=== PATIENT | male | born 1990 | race Caucasian/White ===

== ENCOUNTER 2019-10-30 17:17 | Emergency (ER) | payer BC ==
[2019-10-30] MEDS ORDERED: Glucagon* 1 MG VIAL IV ONE (18:20)
--- NOTE | 2019-10-30 18:23 | ED ---
Throat Pain/Nasal Congestion - HPI Summary HPI Summary: The patient is a 28-year-old male presenting to [facility] [place] with a chief complaint of pharyngeal foreign body sensation onset around 1500. He reports that he was eating chicken at the time, and he now feels like there is something stuck in his throat. He is drooling and is experiencing dysphagia as he is unable to swallow any liquids or solids. Patient denies wheezing. Symptoms currently rated 0/10 in severity. No history of esophageal strictures. Past medical history significant for asthma, appendectomy. Former smoker, occasional alcohol use, no substance use. Medications reviewed. Allergies noted. - History of Current Complaint Chief Complaint: EDForeignBodyEsophag Time Seen by Provider: 10/30/19 18:15 Hx Obtained From: Patient Onset/Duration: Sudden Onset, Lasting Hours, Still Present Severity: Moderate Associated Signs And Symptoms: Positive: Dysphagia, FB Sensation, Drooling. Negative: Wheezing Cough: None Related History: Smoking - former, Other (Noted In Comments) - asthma - Allergies/Home Medications Allergies/Adverse Reactions: Allergies Allergy/AdvReac Type Severity Reaction Status Date / Time No Known Allergies Allergy Verified 10/30/19 17:21 PMH/Surg Hx/FS Hx/Imm Hx Endocrine/Hematology History: Denies: Hx Diabetes, Hx Thyroid Disease Cardiovascular History: Denies: Hx Hypercholesterolemia, Hx Hypertension Respiratory History: Reports: Hx Asthma Denies: Hx Chronic Obstructive Pulmonary Disease (COPD) GI History: Denies: Hx Ulcer Sensory History: Reports: Hx Contacts or Glasses Opthamlomology History: Reports: Hx Contacts or Glasses - Surgical History Surgical History: Yes Surgery Procedure, Year, and Place: appendix Infectious Disease History: No Infectious Disease History: Denies: Hx Hepatitis, Hx Human Immunodeficiency Virus (HIV), Traveled Outside the [place] in Last 30 Days - Family History Known Family History: Negative: Cardiac Disease, Hypertension, Diabetes - Social History Alcohol Use: Occasionally Hx Substance Use: No Substance Use Type: Reports: None Hx Tobacco Use: Yes Smoking Status (MU): Former Smoker Review of Systems Positive: Other - dysphagia with liquids and solids, drooling, FB sensation Negative: Other - wheezing All Other Systems Reviewed And Are Negative: Yes Physical Exam - Summary Physical Exam Summary: VITAL SIGNS: Reviewed. GENERAL: Patient is a well-developed and nourished male who is lying comfortable in the stretcher. Patient is not in any acute respiratory distress. HEAD AND FACE: No signs of trauma. No ecchymosis, hematomas or skull depressions. No sinus tenderness. EYES: PERRLA, EOMI x 2, No injected conjunctiva, no nystagmus. EARS: Hearing grossly intact. Ear canals and tympanic membranes are within normal limits. MOUTH: Drooling. No airway compromise. Oropharynx otherwise within normal limits. NECK: Supple, trachea is midline, no adenopathy, no JVD, no carotid bruit, no c- spine tenderness, neck with full ROM. CHEST: Symmetric, no tenderness at palpation. LUNGS: Clear to auscultation bilaterally. No wheezing or crackles. CVS: Regular rate and rhythm, S1 and S2 present, no murmurs or gallops appreciated. ABDOMEN: Soft, non-tender. No signs of distention. No rebound, no guarding, and no masses palpated. Bowel sounds are normal. EXTREMITIES: FROM in all major joints, no edema, no cyanosis or clubbing. NEURO: Alert and oriented x 3. No acute neurological deficits. Speech is normal and follows commands. SKIN: Dry and warm. Triage Information Reviewed: Yes Vital Signs On Initial Exam: Initial Vitals Temp Pulse Resp BP Pulse Ox 98.1 F 84 19 144/86 100 10/30/19 17:18 10/30/19 17:18 10/30/19 17:18 10/30/19 17:18 10/30/19 17:18 Vital Signs Reviewed: Yes Procedures - Sedation Patient Received Moderate/Deep Sedation with Procedure: Yes Are You The Provider Who Administered The Sedation: [place] of Provider Whom Sedated Patient: [facility] - Vital Signs Vital Signs Temp Pulse Resp BP Pulse Ox 10/30/19 17:26 81 96 10/30/19 17:25 89 137/81 98 10/30/19 17:18 98.1 F 84 19 144/86 100 - Laboratory Lab Statement: Any lab studies that have been ordered have been reviewed, and results considered in the medical decision making process. Re-Evaluation - Re-Evaluation First Eval Re-Evaluation Time: 21:00 Change: Improved Comment: Dr. Rice dislodged the foreign body from the patient's esophagus. Patient is safe for discharge once he becomes more alert and oriented following sedation. EENT Course/Dx - Course Assessment/Plan: The patient is a 28-year-old male presenting to [facility] [place] department with a chief complaint of pharyngeal foreign body sensation onset around 1500. He reports that he was eating chicken at the time, and he now feels like there is something stuck in his throat. He is drooling and is experiencing dysphagia as he is unable to swallow any liquids or solids. Patient denies wheezing. Symptoms currently rated 0/10 in severity. No history of esophageal strictures. Past medical history significant for asthma, appendectomy. Former smoker, occasional alcohol use, no substance use. Medications reviewed. Allergies noted. In the ED course the patient was placed on a jelly maker, IV access was obtained, IV fluids started. Patient was given IV Glucagon. There was no success of the patient passing the foreign body in the esophagus. I discussed my physical exam and findings with Dr. Rice from GI, and he will come and consult for this patient. Dr. Rice from was able to remove the food bolus. The patient is much more comfortable. The patient is resting comfortable without any distress. The patient wound was observed for a couple hours. Now the patient is alert and oriented 3. The patient was tolerating fluids without any nausea or vomiting. The patient will be discharged home with follow-up with primary care physician as well as Dr. Magdaleno from . Plan of care was discussed with the patient, and he understands and agrees. All questions were answered at patient satisfaction. There were no further complaints or concerns. Lung exam before discharge: CTA B/ L. Good air exchange. No wheezing or crackles heard. CVS: S1 and S2 present. No murmurs appreciated. Patient is alert and oriented x 3. Patient is hemodynamically stable. Patient will be discharged home with follow up PCP in the next 2-3 days. - Diagnoses Provider Diagnoses: Esophageal foreign body - Provider Notifications Discussed Care Of Patient With: Henry Rice - Time Discussed With Above Provider: 18:20 Instructed by Provider To: MD Will See In ED - I discussed the patient's case with Dr. Rice, and he will come see the patient in the emergency department. Dr. Rice sedated the patient using 150mcg Fentanyl and 20mg Versed, and he was able to dislodge the chicken stuck in the patients throat via endoscopy. The patients airway is open, and he is able to speak and swallow without difficulty. He will follow up with the patient in two weeks in his office for another scope. Discharge ED - Sign-Out/Discharge Documenting (check all that apply): Patient Departure - Patient will be discharged home. - Discharge Plan Condition: Stable Disposition: HOME Patient Education Materials: Moderate Sedation (ED), Foreign Body Ingestion (ED ) Referrals: Henry Rice MD [Medical Doctor] - Kitty Carey MD [Primary Care Provider] - 3 Days Additional Instructions: Follow up with Dr. Rice in two weeks. His office will call you to set up an appointment. Follow up with your primary care provider in 2-3 days. Return to the emergency department for any new or worsening symptoms. - Billing Disposition and Condition Condition: STABLE Disposition: Home - Attestation Statements Document Initiated by Cliff: Yes Documenting Scribe: Yanci Paul Provider For Whom Cliff is Documenting (Include Credential): Dr. Dalton Khan MD Scribe Attestation: Yanci Moy scribed for Dr. Dalton Khan MD on 10/30/19 at 2148. Scribe Documentation Reviewed: Yes Provider Attestation: The documentation as recorded by the Yanci mas accurately reflects the service I personally performed and the decisions made by me, Dr. Dalton Khan MD Status of [place] Document: Viewed
[2019-10-30] MEDS ORDERED: NS 0.9% 1000 ML** 1,000 ML IV SCH (19:30)
[2019-10-30] MEDS ORDERED: Midazolam* 1 MG/ML 10 ML VIAL (10 MG) ONE (19:39)
[2019-10-30] MEDS ORDERED: fentaNYL* 50 MCG/ML 2 ML VIAL (100 MCG VIAL) ONE (19:39)
--- NOTE | 2019-10-30 20:51 | CONS ---
CC: Dr. Carey * CONSULTATION REPORT: DATE OF CONSULT: 10/30/19 - EMERGENCY DEPT REQUESTING PHYSICIAN: Dr. Khan in the emergency room. PRIMARY CARE PHYSICIAN: Dr. Carey. INDICATION FOR CONSULTATION: Esophageal foreign body, dysphagia. NARRATIVE: The patient is located in room 12 of the emergency room. NARRATIVE: Mr. Pacheco is a very pleasant 28-year-old gentleman who has a history of asthma and seasonal allergies who was eating chicken stir smith around 3 p.m. today. He states that he was eating a large piece of chicken and it felt like it became stuck. This has happened to him before. He can remember 2 other episodes, but each time, he was able to clear the foreign body on his own. He has been unable to handle his own secretions. He has tried to drink water. The water regurgitates up on him. He is drooling his secretions and spitting into a bag. He denies any chest pain, no difficulties breathing. No history of acid reflux. No family history of esophageal issues. PAST MEDICAL HISTORY: Only significant for asthma; however, he does not use any inhalers and seasonal allergies. CURRENT MEDICATIONS: Include Claritin as needed. He had been on asthma inhalers, but has not needed to use them for many years. He denies any NSAIDs. ALLERGIES: None. PAST SURGICAL HISTORY: None. FAMILY HISTORY: No esophageal issues. No GI malignancies in the family. REVIEW OF SYSTEMS: A 12 systems were reviewed with the patient. Other than that mentioned in the HPI were unremarkable. PHYSICAL EXAMINATION: Temperature is 98.1, blood pressure is 144/86, pulse is 84, respiratory rate of 19, O2 sat is 100% on room air. General: Well appearing male in no apparent distress. Alert, oriented, pleasant, fluent. HEENT: Mucous membranes are moist without lesions, ulcers, or exudate. Neck is supple. Trachea is midline. Head is normocephalic, atraumatic. The patient wears glasses. Heart: Regular rate and rhythm. No murmurs, rubs or gallops. Lungs: Clear to auscultation bilaterally. No wheezes, rales, or rhonchi. Abdomen: Positive bowel sounds, soft, nontender, nondistended, no hepatosplenomegaly, masses, rebound, or guarding. Skin is warm and dry. No rashes or tattoos. LABORATORY DATA: Of note, none have been drawn. ASSESSMENT AND PLAN: This is a pleasant 28-year-old gentleman with a history of intermittent dysphagia who presents today with esophageal foreign body. Currently, he is unable to handle his own secretions. He does need an urgent EGD. I had a long discussion with the patient regarding the EGD procedure, risks, benefits and alternatives and he agrees to proceed. We will plan on performing the EGD in the emergency room. [id number]/[facility] #: [id number] [facility] CENTERAngela
[2019-10-30 22:18] VITALS: BP 137/88
--- NOTE | 2019-10-31 02:26 | PRO ---
DATE OF PROCEDURE: 10/30/19 - EMERGENCY DEPT PROCEDURE PERFORMED: EGD with foreign body removal. INDICATION: Esophageal foreign body. DESCRIPTION OF PROCEDURE: After the EGD procedure including risks, benefits, alternatives, not limited to perforation, surgery, and/or were explained to the patient, written consent was then obtained, IV medication was given, and a bite block was placed between the teeth. IV fentanyl 150 mcg, Versed 20 mg IV were used for sedation. An Olympus gastroscope was then inserted into the patient's mouth and advanced down the esophagus. His uvula was somewhat erythematous and was very friable and oozed some blood even before I did the procedure, likely this is secondary to his retching. The upper esophageal sphincter was easily traversed, and immediately upon entering the esophagus, there was what appeared to be a foreign body consistent of chicken. I then used the [employer] to remove 3 large chunks of it. Eventually, the chicken fell apart and fell down the esophagus and into the stomach. I was then able to easily advance the scope down through the GE junction. There was an ulceration at the area of multiple rings in the upper esophageal sphincter where the chicken was stuck and there appeared to be an ulceration and polypoid tissue at the GE junction. The scope was advanced into the stomach, into the duodenum. I decompressed the stomach of fluid. The scope was then withdrawn from the patient. He tolerated the procedure well. He was returned to care of the ED staff. IMPRESSION: 1. Complete upper endoscopy into the duodenum with esophageal foreign body removal. 2. Esophageal foreign body, status post removal. 3. Irritated uvula. 4. Ulcerated area where the chicken was stuck in an area of rings, likely consistent with eosinophilic esophagitis. 5. Distal gastroesophageal junction ulceration. 6. I would like him to start on PPI twice a day, and I would like to re-scope him in 2 to 3 weeks from now. [id number]/[facility] #: [id number] [facility]ENTERAngela
== END 2019-10-30 22:08 | disposition home or self-care (01) ==
LOC: ED 17:17
DX: T18.108A Unspecified foreign body in esophagus causing other injury, initial encounter (principal); X58.XXXA Exposure to other specified factors, initial encounter; Y92.9 Unspecified place or not applicable; Z87.891 Personal history of nicotine dependence; J45.909 Unspecified asthma, uncomplicated; Z87.19 Personal history of other diseases of the digestive system
CPT/HCPCS: 96374; 99156; 99157; 99284; J1610; J2250; J3010